=== PATIENT | female | born 1970 | race American Indian/Alaskan Native ===

== ENCOUNTER 2019-04-21 06:31 | Emergency (ER) | payer OTHER ==
[2019-04-21 06:44] VITALS: BP 145/79
--- NOTE | 2019-04-21 08:11 | Emergency Department Report ---
ED Eye Problem HPI - General Chief complaint: Skin/Abscess/Foreign Body Stated complaint: LARGE PAINFUL LYMPH NODE Time Seen by Provider: 04/21/19 07:18 Source: patient Mode of arrival: Ambulatory Limitations: No Limitations - History of Present Illness Initial comments: Is a 49-year-old -[place] female presents to the emergency room with right upper eyelid swelling and pain for one week. Patient also reports a painful swollen left on the right cervical region. Patient states that it occurred 2-3 days ago. She is apply warm compresses with no improvement of symptoms. Patient states she does wear contact lenses which she removed. Patient states last night she noticed some drainage and crusting of right eye. States vision is the same. Denies grinding sensation, photophobia. chief complaint: eye pain, eye redness Onset/Timin -: week(s) Onset Description: gradual Location: right eye Place: home If Injury: none Eye Symptoms: pain Severity: moderate Severity scale (0 -10): 5 If Pain, Quality: aching Consistency: constant Context: contact lens use Associated Symptoms: none Treatments Prior to Arrival: removed contact lens, other (warm compresses) - Related Data Patient Tetanus UTD: No Previous Rx's Medication Instructions Recorded Last Taken Type Erythromycin [Erythromycin Ophth 10 applic OP Q6H 5 Days #1 tube 04/21/19 Unknown Rx Oint] ED Review of Systems ROS: Stated complaint: LARGE PAINFUL LYMPH NODE Other details as noted in HPI Constitutional: denies: chills, fever Eyes: eye pain (right), eye discharge (right). denies: vision change ENT: denies: ear pain, throat pain Respiratory: denies: cough, shortness of breath, wheezing Cardiovascular: denies: chest pain, palpitations Gastrointestinal: denies: abdominal pain, nausea, diarrhea Skin: denies: rash, lesions Neurological: denies: headache, weakness, paresthesias Psychiatric: denies: anxiety, depression ED Past Medical Hx - Past Medical History Previous Medical History?: Yes Hx Hypertension: Yes - Surgical History Past Surgical History?: No - Social History Smoking Status: Never Smoker Substance Use Type: None - Medications Home Medications: Home Medications Medication Instructions Recorded Confirmed Last Taken Type Erythromycin [Erythromycin Ophth 10 applic OP Q6H 5 Days #1 tube 04/21/19 Unknown Rx Oint] ED Physical Exam - General Limitations: No Limitations General appearance: alert, in no apparent distress - Eye Eye exam: Present: PERRL, EOMI, conjunctival injection, other (pustule, right upper eyelid, or tenderness). Absent: scleral icterus, nystagmus Pupils: Present: normal accommodation, other (normal fleurocein stain of right eye, no signs of foreign body or clue cells) - ENT ENT exam: Present: mucous membranes moist - Neck Neck exam: Present: full ROM, lymphadenopathy (swollen, anterior cervical, tenderness) - Respiratory Respiratory exam: Present: normal lung sounds bilaterally. Absent: respiratory distress - Cardiovascular Cardiovascular Exam: Present: regular rate, normal rhythm. Absent: systolic murmur, diastolic murmur, rubs, gallop - GI/Abdominal GI/Abdominal exam: Present: soft, normal bowel sounds - Neurological Exam Neurological exam: Present: alert, oriented X3 - Psychiatric Psychiatric exam: Present: normal affect, normal mood - Skin Skin exam: Present: warm, dry, intact, normal color. Absent: rash ED Course Vital Signs 04/21/19 06:39 Temperature 98.9 F Pulse Rate 68 Respiratory 12 Rate Blood Pressure 145/79 O2 Sat by Pulse 100 Oximetry ED Medical Decision Making - Medical Decision Making Patient is stable and was examined by me. Vitals stable. Patient is a contact wearer but denies foreign body sensation or change in vision. Bagley light examination with fluorescein stain of right eye normal, with no signs of foreign body or an abrasion. Physical assessment susceptible of a stye of right eye. Start erythromycin. Continue warm compresses and massage. Discussed plan with patient and she agreed with plan. Discharged home in stable condition. Follow up with PCP in 24-72 hours. Critical care attestation.: If time is entered above; I have spent that time in minutes in the direct care of this critically ill patient, excluding procedure time. ED Disposition Clinical Impression: Acute right eye pain Hordeolum externum (stye) Qualifiers: Laterality: right Eyelid: upper Qualified Code(s): H00.011 - Hordeolum externum right upper eyelid Disposition: -01 TO HOME OR SELFCARE Is pt being admited?: No Does the pt Need Aspirin: No Condition: Stable Instructions: Stye (ED) Additional Instructions: Don't share any towels or bedding to prevent spread of infection. Use cool compress to right eye to decrease swelling. Avoid rubbing or touching eyes, because rubbing eyes can cause worsening symptoms. Take medication as prescribed. Return to ER if swelling don't improve or difficulty breathing after 2 days of medication. Prescriptions: Erythromycin [Erythromycin Ophth Oint] 10 applic OP Q6H 5 Days #1 tube Referrals: RL HERNADEZ DO [Staff Physician] - 3-5 Days [facility] [place], [facility] [Provider Group] - 3-5 Days [facility] [Provider Group] - 3-5 Days Forms: Work/School Release Form(ED) Time of Disposition: 08:24
[2019-04-21] MEDS: TETRACAINE 0.5% OU ONE ×2 (08:26→08:41)
[2019-04-21] MEDS: FUL-GLO OP ONE ×2 (08:26→08:39)
== END 2019-04-21 08:00 | disposition home or self-care (01) ==
LOC: ED 06:31
DX: H00.011 Hordeolum externum right upper eyelid (principal); I10 Essential (primary) hypertension
CPT/HCPCS: 99282